=== PATIENT | female | born 1995 | race Caucasian/White ===

== ENCOUNTER → 2018-02-05 | Outpatient (CLI) | payer OTHER ==
[~2018-02-05] VITALS: Ht 170.2 cm; Wt 80.5 kg
[~2018-02-05] MED LIST: NORGESTIMATE AN1 TAB PO
[2018-02-05 14:30] VITALS: BP 144/88; PULSE 85
== END ==
LOC: COL.RAD 13:47
DX: R59.0 Localized enlarged lymph nodes (principal)

== ENCOUNTER → 2020-02-04 | Outpatient (CLI) | payer OTHER | LOC: COL.RAD 01-26 09:45 | DX: L74.9 Eccrine sweat disorder, unspecified (principal) ==

== ENCOUNTER → 2020-02-29 | Outpatient (CLI) | payer OTHER | LOC: COL.CARD 07:33 | DX: R42 Dizziness and giddiness (principal) ==